=== PATIENT | male | born 1970 | race Caucasian/White ===

== ENCOUNTER 2017-11-15 15:18 | Emergency (ER) | payer OTHER, MEDICAID, SELFPAY ==
[2017-11-15 15:24] VITALS: BP 158/98; PULSE 76; RESP 18; TEMP 36.6; O2SAT 97; BMI 32.5
[2017-11-15] MEDS: PROPARACAINE 0.5% OPHTH SOL 1 DROPS EYE-RIGHT (15:37)
[2017-11-15] MEDS: TET,DIPH,PERTUSS(ACELL),VAC/PF 0.5 ML SYRINGE IM (16:21)
[2017-11-15 16:25] VITALS: BP 145/93; PULSE 83; RESP 18; TEMP 36.4; O2SAT 96
--- NOTE | 2017-11-15 17:16 | ED.EYEPROB ---
HPI - Eye Problem General Chief complaint: Eye Problems Stated complaint: SOME DEBRIS IN RIGHT EYE Time Seen by Provider: 11/15/17 17:16 Source: patient Mode of arrival: ambulatory Limitations: no limitations History of Present Illness HPI Narrative: 47-year-old male here for right eye foreign body sensation. Does not wear contacts. Does not know what could be in his eye. He tried to flush his eye this morning. He states that it is in the middle of the upper eyelid however has moved around. Has not tried anything for it prior to arrival. Related Data Previous Rx's Medication Instructions Recorded erythromycin 0.5 inch EYE-RIGHT Q6H 2 Days #1 11/15/17 gram Allergies Allergy/AdvReac Type Severity Reaction Status Date / Time No Known Drug Allergies Allergy Verified 11/15/17 15:28 Review of Systems Constitutional Denies fatigue, Denies fever(s) and Denies headache(s) Eyes Reports blurry vision (Right eye), Denies diplopia, Reports irritation (Right eye), Denies loss of vision, Reports eye pain (Right eye) and Reports photophobia Comments: Foreign body sensation right eye ENT Ears, Nose, Mouth, and Throat: Denies facial pain and Denies headache(s) Integumentary/Breasts Comments: No changes in skin around the right eye Neurologic Denies headache(s) and Denies loss of vision Endocrine Denies fatigue [facility] Social History Smoking Status: Never smoker Exam Initial Vital Signs Initial Vital Signs: Vital Signs Temperature 97.8 F 11/15/17 15:24 Pulse Rate 76 11/15/17 15:24 Respiratory Rate 18 11/15/17 15:24 Blood Pressure 158/98 H 11/15/17 15:24 Pulse Oximetry 97 11/15/17 15:24 Const General: cooperative, healthy appearing, comfortable and well developed Orientation: alert, awake and oriented x3 Eyes Periorbital: periorbital findings normal Conjunctivae: conjunctivae normal Sclera: sclerae normal Cornea: corneas abnormal on the right fluorescein used and abrasion and fluorescein used Pupils: PERRL EOM: EOM intact bilaterally Direct ophthalmoscopy: photophobia Skin Other: Skin surrounding right eye unremarkable Neuro General: alert, awake and oriented x3 Procedures Foreign Body EYE Time Out performed: Yes Location: eye (R) Topical anesthetic used: proparacaine Foreign body: other (Unknown) Evidence of corneal penetration: No Technique: cotton tip swab Procedure performed under: direct visualization with magnification Patient tolerated procedure: well and no complications Course Orders Ordered: Discontinued Medications Diphtheria/Tetanus/Acell Pertussis (Adacel) 0.5 ml IM .ONCE ONE Stop: 11/15/17 16:20 Last Admin: 11/15/17 16:21 Dose: 0.5 ml Erythromycin (Erythromycin Ophth Oint) 1 applic EYE-RIGHT NOW ONE Stop: 11/15/17 17:26 Last Admin: 11/15/17 17:27 Dose: 1 applic Proparacaine HCl (Parcaine 0.5% Ophth Jeannie) 1 drops EYE-RIGHT NOW ONE Stop: 11/15/17 15:37 Last Admin: 11/15/17 15:37 Dose: 1 drop Vital Signs - 8 hr 11/15/17 15:24 11/15/17 16:25 Temperature 97.8 F 97.6 F Pulse Rate 76 83 Respiratory Rate 18 18 Blood Pressure 158/98 H Blood Pressure [Left Arm] 145/93 H Pulse Oximetry 97 96 MDM - Eye Problem MDM Narrative Medical decision making narrative: Patient is not were contacts. Does have a corneal abrasion. Foreign body was removed from the right upper eyelid where the patient stated that it was. The no signs of ulceration. Upon reexamination no other foreign bodies were found. Patient was given Erythromycin here in the ER. He was given care instructions and return precautions. He expressed understanding and agreement with plan Discharge Plan Departure Patient Disposition: Home, Self-Care Clinical Impression: Corneal abrasion, Foreign body in eye Discharge Date/Time: 11/15/17 17:30 Interventions: ED Discharge Assessment Last Done: 11/15/17 17:30 Instructions: DI for Corneal Abrasion Activity Restrictions/Additional Instructions: Use the erythromycin ointment as directed. Return to the emergency department for any new or worsening symptoms Prescriptions: New erythromycin 5 mg/gram (0.5 %) ointment 0.5 inch EYE-RIGHT Q6H 2 Days Qty: 1 RF: 0
[2017-11-15] MEDS: ERYTHROMYCIN OPHTH 1 GM OINT 1 APPLIC EYE-RIGHT (17:27)
== END 2017-11-15 17:30 | disposition home or self-care (01) ==
PROVIDERS: Emergency Provider Emergency Medicine
DX: T15.91XA Foreign body on external eye, part unspecified, right eye, initial encounter (principal)
CPT/HCPCS: 65205; 99282; 99283; 90715

== ENCOUNTER 2018-05-13 15:34 | Emergency (ER) | payer OTHER, MEDICAID, SELFPAY ==
[2018-05-13 15:39] VITALS: TEMP 36.2; BMI 31.7
[2018-05-13 15:41] VITALS: BP 185/106; PULSE 78; RESP 14; TEMP 36.2; O2SAT 97; BMI 31.7
[2018-05-13] MEDS: PROPARACAINE 0.5% OPHTH SOL 1 DROPS EYE-RIGHT (15:47)
== END 2018-05-13 17:02 | disposition left against medical advice (07) ==
PROVIDERS: Emergency Provider Emergency Medicine
DX: H57.11 Ocular pain, right eye (principal)
CPT/HCPCS: 99281

== ENCOUNTER 2021-04-21 04:06 | Emergency (ER) | payer OTHER, MEDICAID, SELFPAY ==
[2021-04-21] VITALS (11 sets, daily range): BP systolic 159–200; BP diastolic 92–108; PULSE 70–83; RESP 17; TEMP 36.6; O2SAT 92–97; BMI 31.7
--- NOTE | 2021-04-21 04:20 | DI.CT.S_ITS ---
PROCEDURE: CT HEAD/BRAIN WO CON INDICATIONS: worst headache of life TECHNIQUE: Noncontrast 4.5 mm thick angled axial sections acquired from the foramen magnum to the vertex, with coronal and sagittal reformats. For radiation dose reduction, the following was used: automated exposure control, adjustment of mA and/or kV according to patient size. COMPARISON: None. FINDINGS: Image quality: Excellent. CSF spaces: Basal cisterns are patent. No extra-axial fluid collections. Ventricles are normal in size and shape. Brain: No midline shift. No intracranial masses or hemorrhage. Arias-white matter interface is normal. Skull and face: Calvarium and visualized facial bones are intact, without suspicious lesions. Sinuses: Visualized sinuses and mastoids are clear. IMPRESSION: No acute intracranial hemorrhage is seen. No acute intracranial process is seen. Note: No significant discrepancy from the preliminary report. Dictated by: Catrachito Kapadia M.D. on 04/21/2021 at 8:09 Approved by: Catrachito Kapadia M.D. on 04/21/2021 at 8:10
--- NOTE | 2021-04-21 04:21 | ED_ITS ---
HPI - Headache General Chief Complaint: Headache Stated Complaint: unable to think straight, severe headache Time Seen by Provider: 04/21/21 04:11 Mode of arrival: Ambulatory Limitations: no limitations History of Present Illness HPI Narrative: 50-year-old male nonsmoker with noncontributory or chronic medical history presents with a chief complaint of a gradually worsening headache over the past 2 days or so. He denies any fever or chills, he has had no recent trauma or injury. He complains of a generalized, squeezing type headache that seems to be worse with bright lights and loud noise. He does have some blurring of vision but denies any other focal neurologic symptoms such as trouble with speech, numbness, tingling or weakness. He has no chest pain or shortness of breath and denies any abdominal pain. He has tried a dose of Motrin and a dose of aspirin with minimal relief. He states he is currently having 5/10 pain. He states it is rather persistent. He denies any history of the same. He denies any recent change in any medications, diet, stress or sleep. He denies any change in caffeine intake. Related Data Previous Rx's Medication Instructions Recorded amlodipine 5 mg tablet 5 mg PO DAILY #30 tab 04/21/21 Allergies Allergy/AdvReac Type Severity Reaction Status Date / Time No Known Drug Allergies Allergy Verified 05/13/18 15:39 Review of Systems Review of Systems Narrative: GENERAL: Denies chills, fatigue, malaise, fever, sweats. HEENT: Denies sinus pain, ear pain, sore throat, difficulty swallowing, d izziness. RESPIRATORY: Denies dyspnea, cough, wheezing, hemoptysis, sputum. CARDIOVASCULAR: Denies chest pain, palpitations, orthopnea, edema, GASTROINTESTINAL: Denies nausea, vomiting, abdominal pain, diarrhea, constipation, melena. : Denies dysuria, frequency, incontinence, hematuria, urinary retention. MUSCULOSKELETAL: denies weakness, joint pain, or bony pain SKIN: Denies rash, skin lesions, or other NEUROLOGIC: See HPI PSYCHIATRIC: No concerning psychosocial issues. 12 point review of systems is negative except for those stated above Patient History Social History Smoking Status: Never smoker Smoking Status: Never smoker alcohol intake frequency: a few times a month Substance Use Type: does not use Exam Narrative Exam Narrative: GENERAL: [] year old patient appears stated age. Well-developed patient, in mild distress. HEAD: Atraumatic. Normocephalic. EYES: Pupils equal round and reactive. Extraocular motions intact. No scleral icterus. No injection or drainage. ENT: Nose without bleeding, purulent drainage. Throat without erythema, tonsillar hypertrophy or exudate. Airway patent. NECK: Trachea midline. Non tender CARDIOVASCULAR: Regular rate and rhythm without murmurs, gallops, or rubs. RESPIRATORY: Clear to auscultation. Breath sounds equal bilaterally. No wheezes, rales, or rhonchi. GASTROINTESTINAL: Abdomen soft, non-tender, nondistended. EXTREMITIES: No edema or joint tenderness. BACK: Nontender without deformity or crepitance. No flank tenderness. NEURO: AOx3. SKIN: No rash or erythema of visible areas Initial Vital Signs Initial Vital Signs: Vital Signs Temperature 97.8 F 04/21/21 04:16 Pulse Rate 81 04/21/21 04:16 Respiratory Rate 17 04/21/21 04:16 Blood Pressure 192/107 H 04/21/21 04:16 Pulse Oximetry 97 04/21/21 04:16 Course Orders Ordered: ED Orders 04/21/21 04:20 CT head/brain wo con Stat 04/21/21 04:40 Basic Metabolic Panel Stat Complete Blood Count AUTO DIFF Stat Discontinued Medications Amlodipine Besylate (Amlodipine 5 Mg Tablet) 5 mg PO NOW ONE Stop: 04/21/21 06:26 Last Admin: 04/21/21 06:29 Dose: 5 mg Documented by: Dexamethasone (Dexamethasone 10 Mg/Ml Vial) 10 mg IV NOW ONE Stop: 04/21/21 04:20 Last Admin: 04/21/21 04:52 Dose: 10 mg Documented by: CONCEPCION Diphenhydramine HCl (Diphenhydramine 50 Mg/Ml Vial) 25 mg IV NOW ONE Stop: 04/21/21 04:20 Last Admin: 04/21/21 04:52 Dose: 25 mg Documented by: CONCEPCION Sodium Chloride (Normal Saline 0.9%) 1,000 mls @ 1,000 mls/hr IV BOLUS ONE Stop: 04/21/21 05:18 Last Admin: 04/21/21 04:53 Dose: 1,000 mls/hr Documented by: CONCEPCION Ketorolac Tromethamine (Ketorolac 30 Mg/Ml Vial) 15 mg IV NOW ONE Stop: 04/21/21 04:20 Last Admin: 04/21/21 04:53 Dose: 15 mg Documented by: CONCEPCION Metoclopramide HCl (Metoclopramide 10 Mg/2 Ml Inj) 10 mg IV NOW ONE Stop: 04/21/21 04:20 Last Admin: 04/21/21 04:52 Dose: 10 mg Documented by: CONCEPCION Reevaluation(s) Reevaluation #1: patient feeling significant improvement after the above stated therapies. BP down to the 150s. Head CT clear Vital Signs Vital signs: Vital Signs - 8 hr 04/21/21 04:16 04/21/21 04:30 04/21/21 04:31 Temperature 97.8 F Pulse Rate 81 81 82 Respiratory Rate 17 Blood Pressure 192/107 H 159/92 H Pulse Oximetry 97 94 94 04/21/21 05:00 04/21/21 05:30 04/21/21 06:00 Temperature Pulse Rate 76 72 70 Respiratory Rate Blood Pressure Pulse Oximetry 95 92 93 04/21/21 06:24 04/21/21 06:27 04/21/21 06:29 Temperature Pulse Rate 83 82 77 Respiratory Rate Blood Pressure 190/108 H 198/92 H Pulse Oximetry 95 94 95 04/21/21 06:30 Temperature Pulse Rate Respiratory Rate Blood Pressure 200/95 H Pulse Oximetry MDM - Headache Lab Data Result diagrams: 04/21/21 04:40 04/21/21 04:40 Labs: Lab Results 04/21/21 04/21/21 Range/Units 04:40 04:40 WBC 7.4 (4.5-11.0) X10^3/uL RBC 5.60 (4.5-5.9) X10^6/uL Hgb 16.2 (13.5-17.5) g/dL Hct 47.5 (41-53) % MCV 84.8 (80-100) fL MCH 28.9 (26-34) PG MCHC 34.1 (30-36) % RDW 13.5 (11.6-14.8) % Plt Count 224 (150-400) X10^3/uL Neut % (Auto) 80.6 H (50-75) % Lymph % (Auto) 10.0 L (25-40) % Kleberg % (Auto) 8.8 (3-14) % Eos % (Auto) 0.3 L (2-4) % Baso % (Auto) 0.3 (0-2) % Neut # (Auto) 6000 (7184-7754) /uL Lymph # (Auto) 700 L (2217-7251) /uL Kleberg # (Auto) 700 (0-900) /uL Eos # (Auto) 0 (0-450) /uL Baso # (Auto) 0 (0-100) /uL Sodium 135 L (137-145) mmol/L Potassium 4.3 (3.4-5.1) mmol/L Chloride 99 (98-107) mmol/L Carbon Dioxide 26 (22-32) mmol/L BUN 12 (9-20) mg/dL Creatinine 0.90 (0.66-1.25) mg/dL Estimated GFR > 60.0 (>60) mL/min BUN/Creatinine Ratio 13.3 (6-22) Glucose 106 H (70-100) mg/dL Calcium 8.9 (8.4-10.2) mg/dL Imaging Data CT scan - head: Radiologist's Impression: NAP MDM Narrative Medical decision making narrative: Headache considerations include, but not limited to: Subarachnoid hemorrhage, but unlikely as patient denies sudden onset of pain, not worst of life, or neck pain Meningitis considered, but thought unlikely given lack of Brudzinski's, Kernig's sign, altered mental status or fever Giant cell arteritis considered, but thought unlikely given lack of unilateral findings, pain in amish, vision change HTN Emergency considered, but thought unlikely given normal vitals Other serious diagnoses considered unlikely given lack of red flag findings such as sudden onset, increasing frequency, immunocompromise, systemic signs (fever, chills, stiff neck, or rash), focal neurologic findings, trauma, blood thinners, etc. Discharge Plan Departure Patient Disposition: Home Clinical Impression: Headache, Hypertension Instructions: Essential Hypertension, DI for Headache Activity Restrictions/Additional Instructions: *You have been diagnosed with [ Headache ] *What to do: *A new prescription for a blood pressure pill (Amlodipine) was sent to [facility] *Follow up with your primary care provider in 2-3 days, call for an appointment. Let them know you were seen in the Emergency Department and that we ask that you be seen in follow up. If you don't have a primary physician you may call [phone] *Return to ER if you should have any new, worsening or concerning symptoms, such as [ fever > 101F, neck pain or stiffness, vomiting, confusion, seizure, focal weakness, vision change, speech deficit or other concerning symptoms ] Prescriptions: New amlodipine 5 mg tablet 5 mg PO DAILY Qty: 30 0RF Referrals: Schuyler Reed MD [Physician] -
[2021-04-21 04:51] LABS: Add Manual Diff / Slide Review NO; Basophils Absolute Auto 0 /uL (0-100); Basophils Percent Auto 0.3 % (0-2); Eosinophils Absolute Auto 0 /uL (0-450); Eosinophils Percent Auto 0.3 % (2-4); Hematocrit 47.5 % (41-53); Hemoglobin 16.2 g/dL (13.5-17.5); Lymphocytes Absolute Auto 700 /uL (1100-4500); Mean Corpuscular HGB Conc 34.1 % (30-36); Mean Corpuscular Hemoglobin 28.9 PG (26-34); Mean Corpuscular Volume 84.8 fL (80-100); Monocytes Absolute Auto 700 /uL (0-900); Monocytes Percent Auto 8.8 % (3-14); Neutrophils Absolute Auto 6000 /uL (1500-7000); Neutrophils Percent Auto 80.6 % (50-75); Platelet Count 224 X10^3/uL (150-400); Red Cell Distribution Width 13.5 % (11.6-14.8); White Blood Cell Count 7.4 X10^3/uL (4.5-11.0)
[2021-04-21] MEDS: diphenhydrAMINE 50 MG/ML VIAL 25 MG IV (04:52)
[2021-04-21] MEDS: METOCLOPRAMIDE 10 MG/2 ML INJ IV (04:52)
[2021-04-21] MEDS: DEXAMETHASONE 10 MG/ML VIAL IV (04:52)
[2021-04-21] MEDS: KETOROLAC 30 MG/ML VIAL 15 MG IV (04:53)
[2021-04-21] MEDS: SODIUM CHLORIDE 0.9% 1,000 ML 1000 ML IV (04:53)
[2021-04-21 04:59] LABS: BUN Creatinine Ratio 13.3 (6-22); Blood Urea Nitrogen 12 mg/dL (9-20); Calcium 8.9 mg/dL (8.4-10.2); Carbon Dioxide 26 mmol/L (22-32); Chloride 99 mmol/L (98-107); Estimated Glomerular Filt Rate > 60.0 mL/min (>60); Glucose 106 mg/dL (70-100); HEMOLYSIS < 15 (0-50); Potassium 4.3 mmol/L (3.4-5.1); Sodium 135 mmol/L (137-145)
[2021-04-21] MEDS: AMLODIPINE 5 MG TABLET PO (06:29)
--- NOTE | 2021-04-21 06:31 | PC.NURSE ---
Dr Aponte notified of elevated BP. Orders received to start amlodipine.
== END 2021-04-21 07:07 | disposition home or self-care (01) ==
PROVIDERS: Emergency Provider Emergency Medicine
DX: R51.9 Headache, unspecified (principal); I10 Essential (primary) hypertension
CPT/HCPCS: 36415; 70450; 80048; 85025; 96361; 96374; 96375; 99284; J1100; J1200; J1885; J2765

== ENCOUNTER 2021-04-24 12:16 | Inpatient (IN) | payer OTHER, MEDICAID, SELFPAY ==
[2021-04-24] VITALS (11 sets, daily range): BP systolic 154–160; BP diastolic 91–97; PULSE 65–104; RESP 16–26; TEMP 35.6–37.4; O2SAT 85–95; BMI 31.7
--- NOTE | 2021-04-24 12:54 | DI.RAD.S_ITS ---
PROCEDURE: XR CHEST 2V INDICATIONS: Shortness of breath TECHNIQUE: 2 views of the chest were acquired. COMPARISON: None. FINDINGS: Surgical changes and devices: None. Lungs and pleura: There are severe mixed interstitial and airspace opacities bilaterally, both ground-glass and consolidative. No pleural effusions or pneumothorax. Mediastinum: Mediastinal contours are normal. Heart size is normal. Bones and chest wall: No suspicious bony abnormalities. Soft tissues appear unremarkable. IMPRESSION: Severe bilateral mixed interstitial and airspace opacities including multifocal consolidation. Findings are likely infectious although there could be a superimposed element of pulmonary edema. Dictated by: Hussein Salcedo M.D. on 04/24/2021 at 12:28 Approved by: Hussein Salcedo M.D. on 04/24/2021 at 12:30
[2021-04-24 13:21] LABS: Add Manual Diff / Slide Review NO; Basophils Absolute Auto 0 /uL (0-100); Basophils Percent Auto 0.2 % (0-2); Eosinophils Absolute Auto 0 /uL (0-450); Hematocrit 48.2 % (41-53); Hemoglobin 16.6 g/dL (13.5-17.5); Lymphocytes Absolute Auto 600 /uL (1100-4500); Lymphocytes Percent Auto 9.7 % (25-40); Mean Corpuscular HGB Conc 34.5 % (30-36); Mean Corpuscular Hemoglobin 28.9 PG (26-34); Mean Corpuscular Volume 83.8 fL (80-100); Monocytes Absolute Auto 400 /uL (0-900); Monocytes Percent Auto 6.5 % (3-14); Neutrophils Absolute Auto 5100 /uL (1500-7000); Neutrophils Percent Auto 83.6 % (50-75); Platelet Count 222 X10^3/uL (150-400); Red Blood Cell Count 5.75 X10^6/uL (4.5-5.9); Red Cell Distribution Width 13.5 % (11.6-14.8); White Blood Cell Count 6.1 X10^3/uL (4.5-11.0)
[2021-04-24 13:24] LABS: Creatine Kinase 265 U/L (55-170); Lactate (Lactic Acid) 1.3 mmol/L (0.7-2.1)
[2021-04-24 13:25] LABS: Alanine Aminotransferase 38 IU/L (<50); Albumin 4.3 g/dL (3.5-5.0); Albumin Globulin Ratio 1.3 (1.0-2.8); Alkaline Phosphatase 54 U/L (38-126); Aspartate Aminotransferase 47 IU/L (17-59); BUN Creatinine Ratio 19.3 (6-22); Bilirubin Total 0.8 mg/dL (0.2-1.3); Blood Urea Nitrogen 17 mg/dL (9-20); Calcium 8.4 mg/dL (8.4-10.2); Carbon Dioxide 24 mmol/L (22-32); Chloride 98 mmol/L (98-107); Estimated Glomerular Filt Rate > 60.0 mL/min (>60); Globulin 3.2 g/dL (1.7-4.1); Glucose 122 mg/dL (70-100); HEMOLYSIS 32 (0-50); Potassium 4.2 mmol/L (3.4-5.1); Sodium 134 mmol/L (137-145); Total Protein 7.5 g/dL (6.3-8.2)
[2021-04-24 13:32] LABS: COVID19 -Nasal RAPID POSITIVE (Negative)
[2021-04-24 13:34] LABS: NT-proBNP (BNP-Adult 18+) 39 pg/mL (<125)
[2021-04-24 13:36] LABS: Troponin I < 0.012 ng/mL (0.01-0.034)
[2021-04-24 13:39] LABS: CKMB % Relative Index 0.2 % (1.5-5.0); Creatine Kinase MB 0.61 ng/mL (<2.37)
--- NOTE | 2021-04-24 14:26 | ED_ITS ---
HPI - Headache General Chief Complaint: Headache Stated Complaint: Heavy metal poisioning Time Seen by Provider: 04/24/21 13:06 Source: patient and old records reviewed Mode of arrival: Wheelchair Limitations: no limitations History of Present Illness HPI Narrative: This is a 49-year-old male comes emergency department with complaint of headache. Patient states he has been feeling unwell for several weeks but was here 2 days ago for headache. Had a head CT at that time which was negative. He has also been feeling short of breath. Having generalized body aches. He denies lot of congestion but he has had a cough which has been nonproductive. He has had nausea but no active vomiting. He denies any diarrhea constipation. He denies any urinary symptoms. No new swelling or skin changes. He also notes he has had bilateral ear pain. He denies daily medications although his EMR says amlodipine. He denies any major surgeries. No known drug allergies. Patient denies any tobacco or alcohol use. No illicit. He states he has not been vaccinated for coronavirus. He does not have any known contacts he is aware of. He states he does not currently have a primary care physician. Related Data Previous Rx's Medication Instructions Recorded amlodipine 5 mg tablet 5 mg PO DAILY #30 tab 04/21/21 Allergies Allergy/AdvReac Type Severity Reaction Status Date / Time No Known Drug Allergies Allergy Verified 04/24/21 12:22 Review of Systems Review of Systems ROS Unobtainable: All systems reviewed & are unremarkable except as noted in HPI and below Patient History Medical History (Updated 04/24/21 @ 17:38 by Felipa Peres MD) Headache Hypertension Family History (Updated 04/24/21 @ 17:38 by Felipa Peres MD) Father Pneumonia due to COVID-19 virus Social History household members: spouse Smoking Status: Never smoker Smoking Status: Never smoker alcohol intake frequency: holidays/special occasions only Substance Use Type: does not use Exam Narrative Exam Narrative: GEN: Ill-appearing male, alert and oriented x 3, patient appears to be in mild distress. HEENT: Atraumatic, pupils are equal round reactive to light, extraocular movements are intact, nares are clear, TMs are clear with no fluid, there is no conjunctival pallor. Throat is clear without any exudates, erythema, tonsillar enlargement or uvular deviation HEART: Regular rate and rhythm without murmur, clicks, rubs. Pulses are equal in upper and lower extremities LUNGS:Lungs clear to auscultation, no wheezes, rales, crackles, chest moves symmetrically, ABD:bowel sounds normal, soft, non-tender, no guarding, rebound, rigidity, no masses noted, no hepatosplenomegaly :No CVA tenderness. MSCL: Non-tender, no muscle atrophy, full range of motion NEURO:CN 2-12 intact, sensation normal SKIN: No rash or skin changes noted. Initial Vital Signs Initial Vital Signs: Vital Signs Temperature 98.8 F 04/24/21 12:20 Pulse Rate 104 H 04/24/21 12:20 Respiratory Rate 16 04/24/21 12:20 Blood Pressure 157/91 H 04/24/21 12:20 Pulse Oximetry 91 04/24/21 12:20 Course Orders Ordered: ED Orders 04/24/21 12:45 COVID19 -Nasal swab/Pre-Proc Stat Complete Blood Count AUTO DIFF Stat Comprehensive Metabolic Panel Stat Lactate (Lactic Acid) Stat NT-proBNP (BNP-Adult 18+) Stat Troponin & CK Cardiac Panel Stat 04/24/21 12:54 XR chest 2V Stat Measure peak expiratory flow ONCE RT Consult Eval and Treat Now 04/24/21 13:06 EKG-12 Lead Stat Acetaminophen (Acetaminophen 325 Mg Tablet) 650 mg PO Q6HR PRN PRN Reason: Fever/Mild Pain (1-3) Last Admin: 04/24/21 16:50 Dose: 650 mg Documented by: ROBERT Hydrocodone Bitart/Acetaminophen (Hydrocodone/Acet 5/325 Tablet) 1 tab PO Q4HR PRN PRN Reason: Pain, Moderate (4-6) Last Admin: 04/24/21 17:18 Dose: 1 tab Documented by: ROBERT Amlodipine Besylate (Amlodipine 5 Mg Tablet) 5 mg PO DAILY [facility] Bisacodyl (Bisacodyl 10 Mg Supp) 10 mg [place] DAILY PRN PRN Reason: Constipation Dexamethasone (Dexamethasone 10 Mg/Ml Vial) 6 mg IV DAILY [facility] Docusate Sodium (Docusate 100 Mg Capsule) 100 mg PO BID [facility] Enoxaparin Sodium (Enoxaparin 40 Mg/0.4 Ml Syringe) 40 mg SUBCUT DAILY [facility] Remdesivir 100 mg/ Sodium (Chloride) 250 mls @ 250 mls/hr IV DAILY ANGELINA Stop: 04/28/21 09:59 Ibuprofen (Ibuprofen 600 Mg Tablet) 600 mg PO Q6HR PRN PRN Reason: Fever/Mild Pain (1-3) Magnesium Hydroxide (Magnesium Hydroxide 30 Ml Udc) 30 ml PO DAILY PRN PRN Reason: Constipation Naloxone HCl (Naloxone 0.4 Mg/Ml Vial) 0.2 mg IV Q2MIN PRN PRN Reason: Opiate Reversal Ondansetron HCl (Ondansetron 4 Mg/2 Ml Inj) 4 mg IV Q6HR PRN PRN Reason: Nausea And Vomiting Last Admin: 04/24/21 14:54 Dose: 4 mg Documented by: ELIZABETH Ondansetron HCl (Ondansetron 4 Mg/2 Ml Inj) 4 mg IV Q8HR PRN PRN Reason: Nausea And Vomiting Ondansetron HCl (Ondansetron 4 Mg Odt) 4 mg PO Q8HR PRN PRN Reason: Nausea And Vomiting Sennosides (Sennosides 8.6 Mg Tablet) 17.2 mg PO BEDTIME ANGELINA Discontinued Medications Dexamethasone (Dexamethasone 10 Mg/Ml Vial) 6 mg IV NOW ONE Stop: 04/24/21 14:37 Last Admin: 04/24/21 15:01 Dose: 6 mg Documented by: ELIZABETH Remdesivir 200 mg/ Sodium (Chloride) 250 mls @ 250 mls/hr IV NOW ONE Stop: 04/24/21 15:35 Last Infusion: 04/24/21 15:06 Dose: 0 mls/hr Documented by: Admin: 04/24/21 15:00 Dose: 250 mls/hr Documented by: ELIZABETH Ketorolac Tromethamine (Ketorolac 30 Mg/Ml Vial) 15 mg IV NOW ONE Stop: 04/24/21 14:37 Last Admin: 04/24/21 14:54 Dose: 15 mg Documented by: ELIZABETH Consultations Consultation #1: Dr. Peres accepts for admission. Patient has COVID pneumonia with hypoxia requiring 2-4 L intermittently. He is unvaccinated. His labs otherwise do not show any alarming changes today. Vital Signs Vital signs: Vital Signs - 8 hr 04/24/21 12:20 04/24/21 12:49 04/24/21 13:00 Temperature 98.8 F Pulse Rate 104 H 94 H 94 H Respiratory Rate 16 23 23 Blood Pressure 157/91 H 158/93 H 160/91 H Pulse Oximetry 91 92 85 L 04/24/21 13:05 04/24/21 13:30 04/24/21 14:00 Temperature Pulse Rate 96 H 89 Respiratory Rate 23 24 Blood Pressure Pulse Oximetry 94 94 94 04/24/21 14:30 04/24/21 14:37 Temperature Pulse Rate 94 H Respiratory Rate 26 H Blood Pressure Pulse Oximetry 90 L 95 MDM - Headache Lab Data Result diagrams: 04/24/21 12:45 04/24/21 12:45 Labs: Lab Results 04/24/21 04/24/21 04/24/21 Range/Units 12:45 12:45 12:45 WBC 6.1 (4.5-11.0) X10^3/uL RBC 5.75 (4.5-5.9) X10^6/uL Hgb 16.6 (13.5-17.5) g/dL Hct 48.2 (41-53) % MCV 83.8 (80-100) fL MCH 28.9 (26-34) PG MCHC 34.5 (30-36) % RDW 13.5 (11.6-14.8) % Plt Count 222 (150-400) X10^3/uL Neut % (Auto) 83.6 H (50-75) % Lymph % (Auto) 9.7 L (25-40) % [place] % (Auto) 6.5 (3-14) % Eos % (Auto) 0.0 L (2-4) % Baso % (Auto) 0.2 (0-2) % Neut # (Auto) 5100 (7129-3848) /uL Lymph # (Auto) 600 L (9757-4789) /uL [place] # (Auto) 400 (0-900) /uL Eos # (Auto) 0 (0-450) /uL Baso # (Auto) 0 (0-100) /uL Sodium 134 L (137-145) mmol/L Potassium 4.2 (3.4-5.1) mmol/L Chloride 98 (98-107) mmol/L Carbon Dioxide 24 (22-32) mmol/L BUN 17 (9-20) mg/dL Creatinine 0.88 (0.66-1.25) mg/dL Estimated GFR > 60.0 (>60) mL/min BUN/Creatinine Ratio 19.3 (6-22) Glucose 122 H (70-100) mg/dL Lactate (0.7-2.1) mmol/L Calcium 8.4 (8.4-10.2) mg/dL Total Bilirubin 0.8 (0.2-1.3) mg/dL AST 47 (17-59) IU/L ALT 38 (<50) IU/L Alkaline Phosphatase 54 (38-126) U/L Total Creatine Kinase (55-170) U/L CK-MB (CK-2) (<2.37) ng/mL CK-MB (CK-2) Rel Index (1.5-5.0) % Troponin I (0.01-0.034) ng/mL NT-Pro-B Natriuret Pep 39 (<125) pg/mL Total Protein 7.5 (6.3-8.2) g/dL Albumin 4.3 (3.5-5.0) g/dL Globulin 3.2 (1.7-4.1) g/dL Albumin/Globulin Ratio 1.3 (1.0-2.8) Procalcitonin (<0.5) ng/mL SARS-CoV-2 (PCR) Positive H (Negative) 04/24/21 04/24/21 04/24/21 Range/Units 12:45 12:45 12:45 WBC (4.5-11.0) X10^3/uL RBC (4.5-5.9) X10^6/uL Hgb (13.5-17.5) g/dL Hct (41-53) % MCV (80-100) fL MCH (26-34) PG MCHC (30-36) % RDW (11.6-14.8) % Plt Count (150-400) X10^3/uL Neut % (Auto) (50-75) % Lymph % (Auto) (25-40) % [place] % (Auto) (3-14) % Eos % (Auto) (2-4) % Baso % (Auto) (0-2) % Neut # (Auto) (3850-7023) /uL Lymph # (Auto) (5657-3052) /uL [place] # (Auto) (0-900) /uL Eos # (Auto) (0-450) /uL Baso # (Auto) (0-100) /uL Sodium (137-145) mmol/L Potassium (3.4-5.1) mmol/L Chloride (98-107) mmol/L Carbon Dioxide (22-32) mmol/L BUN (9-20) mg/dL Creatinine (0.66-1.25) mg/dL Estimated GFR (>60) mL/min BUN/Creatinine Ratio (6-22) Glucose (70-100) mg/dL Lactate 1.3 (0.7-2.1) mmol/L Calcium (8.4-10.2) mg/dL Total Bilirubin (0.2-1.3) mg/dL AST (17-59) IU/L ALT (<50) IU/L Alkaline Phosphatase (38-126) U/L Total Creatine Kinase 265 H (55-170) U/L CK-MB (CK-2) 0.61 (<2.37) ng/mL CK-MB (CK-2) Rel Index 0.2 L (1.5-5.0) % Troponin I < 0.012 (0.01-0.034) ng/mL NT-Pro-B Natriuret Pep (<125) pg/mL Total Protein (6.3-8.2) g/dL Albumin (3.5-5.0) g/dL Globulin (1.7-4.1) g/dL Albumin/Globulin Ratio (1.0-2.8) Procalcitonin 0.08 (<0.5) ng/mL SARS-CoV-2 (PCR) (Negative) Imaging Data Chest x-ray: Radiologist's Impression: [address] [address] XRay Report Signed Patient: Alexei Neff MR#: [id number] : 1970 Acct:[id number] Age/Sex: 50 / M Date of Service: 04/24/21 Loc: ED Accession Number: [id number] ?? Procedure: XR chest 2V Ordering Provider: Nasrin Cerda D.O. PROCEDURE:? XR CHEST 2V ? INDICATIONS:? Shortness of breath ? TECHNIQUE:? 2 views of the chest were acquired.? ? COMPARISON:? None. ? FINDINGS:? ? Surgical changes and devices:? None.? ? Lungs and pleura:? There are severe mixed interstitial and airspace opacities bilaterally, both ground-glass and consolidative.? No pleural effusions or pneu mothorax.? ? ? Mediastinum:? Mediastinal contours are normal.? Heart size is normal.? ? Bones and chest wall:? No suspicious bony abnormalities.? Soft tissues appear unremarkable.? ? IMPRESSION:? Severe bilateral mixed interstitial and airspace opacities including multifocal consolidation.? Findings are likely infectious although there could be a superimposed element of pulmonary edema.? ? ? Dictated by: Hussein Salcedo M.D. on 04/24/2021 at 12:28 ? ? Approved by: Hussein Salcedo M.D. on 04/24/2021 at 12:30?? ECG Data Interpretation: Sinus rhythm rate of 90 2p are 140 QRS is 78 QTC of 420. No acute ST elevation depression. MDM Narrative Medical decision making narrative: 50-year-old male who comes emergency department with generalized myalgias, shortness of breath and headache. Patient's symptoms initially started more of a headache and just feeling unwell. He is COVID positive. He had a head CT 2 days ago when he was seen which was negative and was not reproduce today secondary to no acute new changes. He is requiring 2-4 L nasal cannula and appears to have pneumonia on his x-ray. Patient's labs show total CK of 265 but no other major abnormalities. Toradol, Zofran, remdesivir dexamethasone were ordered secondary to patient's hypoxia. Spoke with the hospitalist Dr. Peres who accepts. Discharge Plan Departure Patient Disposition: Admitted As Inpatient Clinical Impression: Pneumonia due to 2019 novel coronavirus Admit Date/Time: 04/24/21 15:01 Admit Provider: Felipa Peres
[2021-04-24] MEDS: ONDANSETRON 4 MG/2 ML INJ IV (14:54)
[2021-04-24] MEDS: KETOROLAC 30 MG/ML VIAL 15 MG IV (14:54)
[2021-04-24] MEDS: REMDESIVIR 200 MG in SODIUM CHLORIDE 0.9% 210 ML 250 ML IV (15:00)
[2021-04-24] MEDS: DEXAMETHASONE 10 MG/ML VIAL 6 MG IV (15:01)
--- NOTE | 2021-04-24 16:48 | PC.NURSE ---
Pt arrived from ED at approximately 1520, VSS, low grade temp of 99.4 and 02 saturation 97 on 4LNC. Pt reports headache 7/10 and medicated with PRN tylenol. Remdesivir completed 1 hour after transport. Pt denies syncope, n/c, falls. Skin is clear, dry, intact. Admission assessment completed. He denies any home medications. He reports lack of appetite and having lost 13 pounds in the past week. He reports psychological stressors recently such as court cases. He is slightly diaphoretic and slightly SOB with activity. Educated patient about falling and he agreed and acknowledged to call before getting up in the room independently. Continuous monitoring.
[2021-04-24] MEDS: ACETAMINOPHEN 325 MG TABLET 650 MG PO (16:50)
[2021-04-24] MEDS: HYDROCODONE/ACET 5/325 TABLET 1 TAB PO (17:18)
--- NOTE | 2021-04-24 17:35 | P.HP_ITS ---
History of Present Illness History of Present Illness Date Patient Seen: 04/24/21 Chief complaint: Heavy metal poisioning Narrative: The patient is a 50-year-old male with a past medical history of hypertension who was in his usual state of health until approximately 1 week ago. Patient developed a headache which was persistent. The headache was so severe he presented to the emergency room on April 21 for evaluation. Patient had a head CT which was unremarkable. He was discharged home. The patient presented again this evening with generalized body aches, shortness of breath, cough, poor appetite, metal taste. Patient is unvaccinated. He was tested for KHIS-THDYQ-0 and found to be COVID positive. The patient was noted to be hypoxic. He was admitted to the hospital for further evaluation. Patient reports he believes he had COVID in July of 2020. Not tested at that time. His father had COVID nearly succumbed to the illness but recovered. Patient was recently diagnosed with hypertension and started on amlodipine. Does not have a primary care physician. Patient History Medical History (Updated 04/24/21 @ 17:38 by Felipa Peres MD) Headache Hypertension Family & Social History Family History (Updated 04/24/21 @ 17:38 by Felipa Peres MD) Father Pneumonia due to COVID-19 virus Safety & Behavioral: Feels Safe in Current Yes Environment Been Physically Hurt or No Threatened By a Person Tobacco & Substance use: Smoking Status Never smoker alcohol intake frequency holiday/special occasion Substance Use Type does not use Meds Home Medications and Allergies Home Medications Medication Instructions Recorded Confirmed Type amlodipine 5 mg tablet 5 mg PO DAILY #30 tab 04/21/21 Rx Allergies Allergy/AdvReac Type Severity Reaction Status Date / Time No Known Drug Allergies Allergy Verified 04/24/21 12:22 Review of Systems Review of Systems Narrative: Review of systems positive for headache, poor appetite for the past week, weight loss, generalized aching, metal taste in his mouth, mild nausea, no vomiting, no hematemesis, no melena, no dysuria, no pyuria, for the review of systems is negative Exam Vital Signs (past 8 hours): - 04/24/21 12:20 04/24/21 12:49 04/24/21 13:00 Temperature 98.8 F Pulse Rate 104 H 94 H 94 H Respiratory Rate 16 23 23 Blood Pressure 157/91 H 158/93 H 160/91 H Pulse Oximetry 91 92 85 L 04/24/21 13:05 04/24/21 13:30 04/24/21 14:00 Temperature Pulse Rate 96 H 89 Respiratory Rate 23 24 Blood Pressure Pulse Oximetry 94 94 94 04/24/21 14:30 04/24/21 14:37 04/24/21 15:40 Temperature 99.3 F Pulse Rate 94 H 88 Respiratory Rate 26 H 20 Blood Pressure 159/96 H Pulse Oximetry 90 L 95 94 Oxygen Delivery Method Nasal Cannula Oxygen Flow Rate 4 Narrative Exam Narrative: Ill-appearing male lying in bed [facility] Other: HEENT: Normocephalic atraumatic, extraocular muscles are intact, oropharynx reveals moist mucous membranes, neck is supple without adenopathy or thyromegaly Resp Other: Lungs reveal diffuse rhonchi bilaterally Cardio Other: Cardiac exam: Regular rate and rhythm normal S1-S2 GI Other: Abdomen: Soft nontender nondistended no appreciable hepatosplenomegaly Skin Other: No rashes Neuro Other: Cranial nerves 2-12 are intact, strength is symmetric and equal, sensations grossly intact, gait is not assessed Extrem Other: No edema Psych Other: Normal mood and thought content, no hallucinations, no active delusions Objective Labs Result Diagrams: 04/24/21 12:45 04/24/21 12:45 Labs: Laboratory Results - last 24 hr 04/24/21 04/24/21 04/24/21 12:45 12:45 12:45 WBC 6.1 RBC 5.75 Hgb 16.6 Hct 48.2 MCV 83.8 MCH 28.9 MCHC 34.5 RDW 13.5 Plt Count 222 Neut % (Auto) 83.6 H Lymph % (Auto) 9.7 L [place] % (Auto) 6.5 Eos % (Auto) 0.0 L Baso % (Auto) 0.2 Neut # (Auto) 5100 Lymph # (Auto) 600 L [place] # (Auto) 400 Eos # (Auto) 0 Baso # (Auto) 0 Sodium 134 L Potassium 4.2 Chloride 98 Carbon Dioxide 24 BUN 17 Creatinine 0.88 Estimated GFR > 60.0 BUN/Creatinine Ratio 19.3 Glucose 122 H Lactate Calcium 8.4 Total Bilirubin 0.8 AST 47 ALT 38 Alkaline Phosphatase 54 Total Creatine Kinase CK-MB (CK-2) CK-MB (CK-2) Rel Index Troponin I NT-Pro-B Natriuret Pep 39 Total Protein 7.5 Albumin 4.3 Globulin 3.2 Albumin/Globulin Ratio 1.3 SARS-CoV-2 (PCR) Positive H 04/24/21 04/24/21 12:45 12:45 WBC RBC Hgb Hct MCV MCH MCHC RDW Plt Count Neut % (Auto) Lymph % (Auto) [place] % (Auto) Eos % (Auto) Baso % (Auto) Neut # (Auto) Lymph # (Auto) [place] # (Auto) Eos # (Auto) Baso # (Auto) Sodium Potassium Chloride Carbon Dioxide BUN Creatinine Estimated GFR BUN/Creatinine Ratio Glucose Lactate 1.3 Calcium Total Bilirubin AST ALT Alkaline Phosphatase Total Creatine Kinase 265 H CK-MB (CK-2) 0.61 CK-MB (CK-2) Rel Index 0.2 L Troponin I < 0.012 NT-Pro-B Natriuret Pep Total Protein Albumin Globulin Albumin/Globulin Ratio SARS-CoV-2 (PCR) Assessment & Plan Assessment and plan (1) Hypertension: Status: Acute (2) Headache: Status: Acute Assessment & Plan narrative: Impression 1. 50-year-old male admitted to the hospital with acute respiratory failure secondary to COVID pneumonia -patient is unvaccinated, SARs COVID 2 PCR is positive -chest x-ray confirms severe bilateral interstitial airspace opacities, there is multifocal consolidation, -patient is hypoxic with a room air sat of 85% -he continues to have fever, headache, and myalgias, poor appetite and metallic taste -white count 6.1, serum sodium 134 -will start dexamethasone 6 mg IV daily, remdesivir 200 mg IV x1 then 100 mg daily for 4 days -patient will be placed on Lovenox for DVT prophylaxis -will continue Tylenol and ibuprofen for headache -patient indicates he is a full code will note that his record according -in the event the patient would require intubation that resulted in tracheotomy he indicates he would not like a trach 2. 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 He indicates he would like to be a full code and will note that his record accordingly I have utilized all available methods to review update and confirm his medication Patient will be admitted as an inpatient Time Spent With Patient Critical Care time: I spent a total of [] minutes of critical care time on this patient's care today; this time is exclusive of procedural time.
[2021-04-24 17:57] LABS: Procalcitonin 0.08 ng/mL (<0.5)
[2021-04-25 01:20] VITALS: BP 144/91; PULSE 66; RESP 18; TEMP 36.5; O2SAT 94
[2021-04-25 06:21] VITALS: BP 129/89; PULSE 71; RESP 19; TEMP 36.3; O2SAT 95
[2021-04-25 08:30] VITALS: BP 144/84; PULSE 71; RESP 16; TEMP 37.1; O2SAT 93
[2021-04-25 09:54] LABS: Add Manual Diff / Slide Review NO; Basophils Absolute Auto 0 /uL (0-100); Basophils Percent Auto 0.1 % (0-2); Eosinophils Absolute Auto 0 /uL (0-450); Hematocrit 47.4 % (41-53); Hemoglobin 16.5 g/dL (13.5-17.5); Lymphocytes Absolute Auto 1000 /uL (1100-4500); Lymphocytes Percent Auto 16.2 % (25-40); Mean Corpuscular HGB Conc 34.9 % (30-36); Mean Corpuscular Hemoglobin 29.2 PG (26-34); Mean Corpuscular Volume 83.7 fL (80-100); Monocytes Absolute Auto 400 /uL (0-900); Monocytes Percent Auto 6.6 % (3-14); Neutrophils Absolute Auto 4800 /uL (1500-7000); Neutrophils Percent Auto 77.1 % (50-75); Platelet Count 245 X10^3/uL (150-400); Red Blood Cell Count 5.67 X10^6/uL (4.5-5.9); Red Cell Distribution Width 13.4 % (11.6-14.8); White Blood Cell Count 6.3 X10^3/uL (4.5-11.0)
[2021-04-25 10:16] LABS: BUN Creatinine Ratio 22.6 (6-22); Blood Urea Nitrogen 19 mg/dL (9-20); Calcium 8.5 mg/dL (8.4-10.2); Carbon Dioxide 28 mmol/L (22-32); Chloride 100 mmol/L (98-107); Estimated Glomerular Filt Rate > 60.0 mL/min (>60); Glucose 143 mg/dL (70-100); HEMOLYSIS < 15 (0-50); Sodium 136 mmol/L (137-145)
[2021-04-25] MEDS: DEXAMETHASONE 10 MG/ML VIAL 6 MG IV (10:18)
[2021-04-25] MEDS: REMDESIVIR 100 MG in SODIUM CHLORIDE 0.9% 230 ML 250 ML IV (10:19)
[2021-04-25] MEDS: AMLODIPINE 5 MG TABLET PO (10:20)
--- NOTE | 2021-04-25 12:05 | PC.NURSE ---
Addendum entered by Estephania Healy R.N. 04/25/21 15:58: Patient on 4l of o2 and sats are in the 90s, he did drop to 89% when he got up to the bathroom but goes back up to the 90s. He complains of dry eyes, to order some clear eyes for patient. Appetite good. Patients dad called to check on the patient several times. He is confused and pleasant.. He brought patient his phone cord to charge. Original Note: Patient with flat affect, he states that this is the second time he has had covid, he has no intention of getting the vaccine as he told me when we conversing. He is pleasant and cooperative with care. He refused his stool softner and states that he has not had a bowel movement in 5 days. Encouraged to take but he wanted nothing to do with this. Patient also refused his lovenox injection. Tried to explain to patient that this is prophylaxis to help prevent blood clots. He also did not want to really discuss this. His lung sounds have crackles in the bases and they are diminished. He is on 4l of oxygen and does desat down to 87-89% when he is up ambulating.
[2021-04-25 13:00] VITALS: BP 149/87; PULSE 78; RESP 20; TEMP 36.7; O2SAT 90
--- NOTE | 2021-04-25 15:42 | PM.PN.1 ---
Subjective Subjective Date Patient Seen: 04/25/21 Interval history: 50-year-old male admitted to the hospital for acute respiratory failure due to COVID pneumonia. Patient continues to feel short of breath, he complains of headache, he complains of his eyes burning. He is now on 4 L of oxygen. Oxygen saturation is 90-93%. He has a dry nonproductive cough. Exam Vital Signs (past 8 hours): - 04/25/21 08:30 04/25/21 13:00 Temperature 98.7 F 98.1 F Pulse Rate 71 78 Respiratory Rate 16 20 Blood Pressure 144/84 H 149/87 H Pulse Oximetry 93 90 L Oxygen Delivery Method Nasal Cannula Oxygen Flow Rate 4 Narrative Exam Narrative: Ill-appearing male lying in bed Resp Other: Lungs decreased breath sounds with scattered rhonchi bilaterally Cardio Other: Cardiac exam: Regular rate rhythm normal S1-S2 GI Other: Abdomen: Soft nontender nondistended Extrem Other: Extremities: No edema Objective Labs Result Diagrams: 04/25/21 09:25 04/25/21 09:25 Labs: Laboratory Results - last 24 hr 04/24/21 04/25/21 04/25/21 12:45 09:25 09:25 WBC 6.3 RBC 5.67 Hgb 16.5 Hct 47.4 MCV 83.7 MCH 29.2 MCHC 34.9 RDW 13.4 Plt Count 245 Neut % (Auto) 77.1 H Lymph % (Auto) 16.2 L [place] % (Auto) 6.6 Eos % (Auto) 0.0 L Baso % (Auto) 0.1 Neut # (Auto) 4800 Lymph # (Auto) 1000 L [place] # (Auto) 400 Eos # (Auto) 0 Baso # (Auto) 0 Sodium 136 L Potassium 4.0 Chloride 100 Carbon Dioxide 28 BUN 19 Creatinine 0.84 Estimated GFR > 60.0 BUN/Creatinine Ratio 22.6 H Glucose 143 H Calcium 8.5 Procalcitonin 0.08 PFSH Medical History (Updated 04/24/21 @ 17:38 by Felipa Peres MD) Headache Hypertension Family History (Updated 04/24/21 @ 17:38 by Felipa Peres MD) Father Pneumonia due to COVID-19 virus Social History household members: spouse Smoking Status: Never smoker Assessment & Plan Assessment & Plan narrative: 50-year-old male admitted to the hospital with acute respiratory failure secondary to COVID pneumonia -patient is unvaccinated, SARs COVID 2 PCR is positive -chest x-ray confirms severe bilateral interstitial airspace opacities, there is multifocal consolidation, -patient is hypoxic with a room air sat of 85% -he continues to have fever, headache, and myalgias, poor appetite and metallic taste -white count 6.1, serum sodium 134 -will start dexamethasone 6 mg IV daily, remdesivir 200 mg IV x1 then 100 mg daily for 4 days -patient will be placed on Lovenox for DVT prophylaxis -will continue Tylenol and ibuprofen for headache -patient indicates he is a full code will note that his record according -in the event the patient would require intubation that resulted in tracheotomy he indicates he would not like a trach -patient will continue on remdesivir and Decadron, he is slightly more hypoxic today, will continue to titrate oxygen for maximum effect -patient complains of burning eyes, will start clear eyes for this 2. Hypertension -new diagnosis, will continue amlodipine 5 mg daily, need to titrate for effect as blood pressure remains elevated -increase amlodipine to 10 mg daily Time Spent With Patient Critical Care time: I spent a total of [] minutes of critical care time on this patient's care today; this time is exclusive of procedural time. Quality VTE Deep Vein Thrombosis/Pulmonary Embolism Present on Admission: No
[2021-04-25 17:00] VITALS: BP 154/82; PULSE 70; RESP 20; TEMP 36.9; O2SAT 90
[2021-04-25 20:23] VITALS: BP 151/82; PULSE 70; RESP 20; TEMP 36.7; O2SAT 93
[2021-04-26] VITALS (7 sets, daily range): BP systolic 132–164; BP diastolic 82–93; PULSE 72–92; RESP 16–20; TEMP 36.3–37.2; O2SAT 88–93
[2021-04-26 05:03] LABS: Add Manual Diff / Slide Review NO; Basophils Absolute Auto 0 /uL (0-100); Basophils Percent Auto 0.3 % (0-2); Eosinophils Absolute Auto 0 /uL (0-450); Hematocrit 45.1 % (41-53); Hemoglobin 15.9 g/dL (13.5-17.5); Lymphocytes Absolute Auto 1500 /uL (1100-4500); Lymphocytes Percent Auto 17.7 % (25-40); Mean Corpuscular HGB Conc 35.4 % (30-36); Mean Corpuscular Hemoglobin 29.4 PG (26-34); Monocytes Absolute Auto 800 /uL (0-900); Monocytes Percent Auto 10.1 % (3-14); Neutrophils Absolute Auto 6000 /uL (1500-7000); Neutrophils Percent Auto 71.9 % (50-75); Platelet Count 286 X10^3/uL (150-400); Red Blood Cell Count 5.43 X10^6/uL (4.5-5.9); Red Cell Distribution Width 13.6 % (11.6-14.8); White Blood Cell Count 8.3 X10^3/uL (4.5-11.0)
[2021-04-26 05:10] LABS: BUN Creatinine Ratio 23.3 (6-22); Blood Urea Nitrogen 21 mg/dL (9-20); Calcium 8.5 mg/dL (8.4-10.2); Carbon Dioxide 33 mmol/L (22-32); Chloride 101 mmol/L (98-107); Estimated Glomerular Filt Rate > 60.0 mL/min (>60); Glucose 119 mg/dL (70-100); HEMOLYSIS < 15 (0-50); Potassium 4.3 mmol/L (3.4-5.1); Sodium 139 mmol/L (137-145)
[2021-04-26] MEDS: AMLODIPINE 5 MG TABLET 10 MG PO (09:33)
[2021-04-26] MEDS: DEXAMETHASONE 10 MG/ML VIAL 6 MG IV (09:33)
[2021-04-26] MEDS: REMDESIVIR 100 MG in SODIUM CHLORIDE 0.9% 230 ML 250 ML IV (09:33)
[2021-04-26] MEDS: DOCUSATE 100 MG CAPSULE PO (09:33)
[2021-04-26] MEDS: ENOXAPARIN 40 MG/0.4 ML SYRINGE SUBCUT (09:33)
--- NOTE | 2021-04-26 10:27 | PC.NURSE ---
Addendum entered by Estephania Healy R.N. 04/26/21 18:27: Patient is quietly sitting up in his chair . He has not needed any cough syrup as of yet. Per Dr. Peres patient was coughing in room while she was during her rounds with him. He has not complained of coughing since this. If he does we do have cough syrup for him. Addendum entered by Estephania Healy R.N. 04/26/21 15:50: Patient is 92% on 4l of oxygen. He states that he is feeling better since sitting up in the chair. We have also showed him how to order his meals. Patient was not impressed with the food he was given. Ordering his own meals will make a difference. Addendum entered by Estephania Healy R.N. 04/26/21 14:04: Remdesvir finished earlier, patient is low 90s on 4L of 02..He is sitting up in the chair and resting comfortably. IV flushing well.. Original Note: Patient with flat affect, does not want to be in the hospital. He has crackles throughout his lungs and is on 4L of 02. He tends to desat to about 87-89% when he gets up to use the bathroom. Up with sba to use the bathroom. Remdesvir is infusing now. Patient denies pain and is not eating his breakfast as he states that he is nauseous. Will recheck this in again to see if it has resolved.
--- NOTE | 2021-04-26 17:07 | PM.PN.1 ---
Subjective Subjective Date Patient Seen: 04/26/21 Interval history: 50-year-old male admitted to the hospital with COVID pneumonia. Patient's main complaint today is persistent headache in addition to ongoing cough. He continues on 4 and half to 5 L of oxygen. Overall he feels a little bit better Exam Vital Signs (past 8 hours): - 04/26/21 13:00 04/26/21 16:00 Temperature 99 F 98.3 F Pulse Rate 83 83 Respiratory Rate 18 18 Blood Pressure 132/82 138/82 Pulse Oximetry 90 L 92 Oxygen Delivery Method Nasal Cannula Oxygen Flow Rate 4.5 Narrative Exam Narrative: Ill-appearing male sitting in a chair Resp Other: Lungs: Decreased breath sounds with occasional scattered crackles and rhonchi Cardio Other: Cardiac exam: Regular rate and rhythm normal S1-S2 GI Other: Abdomen: Soft nontender nondistended Extrem Other: Extremities: No edema Objective Labs Result Diagrams: 04/26/21 04:43 04/26/21 04:43 Labs: Laboratory Results - last 24 hr 04/26/21 04/26/21 04:43 04:43 WBC 8.3 RBC 5.43 Hgb 15.9 Hct 45.1 MCV 83.0 MCH 29.4 MCHC 35.4 RDW 13.6 Plt Count 286 Neut % (Auto) 71.9 Lymph % (Auto) 17.7 L [place] % (Auto) 10.1 Eos % (Auto) 0.0 L Baso % (Auto) 0.3 Neut # (Auto) 6000 Lymph # (Auto) 1500 [place] # (Auto) 800 Eos # (Auto) 0 Baso # (Auto) 0 Sodium 139 Potassium 4.3 Chloride 101 Carbon Dioxide 33 H BUN 21 H Creatinine 0.90 Estimated GFR > 60.0 BUN/Creatinine Ratio 23.3 H Glucose 119 H Calcium 8.5 PFSH Medical History (Updated 04/24/21 @ 17:38 by Felipa Peres MD) Headache Hypertension Family History (Updated 04/24/21 @ 17:38 by Felipa Peres MD) Father Pneumonia due to COVID-19 virus Social History household members: spouse Smoking Status: Never smoker Assessment & Plan Assessment & Plan narrative: 50-year-old male admitted to the hospital with acute respiratory failure secondary to COVID pneumonia -patient is unvaccinated, SARs COVID 2 PCR is positive -chest x-ray confirms severe bilateral interstitial airspace opacities, there is multifocal consolidation, -patient is hypoxic with a room air sat of 85% -he continues to have fever, headache, and myalgias, poor appetite and metallic taste -white count 6.1, serum sodium 134 -will start dexamethasone 6 mg IV daily, remdesivir 200 mg IV x1 then 100 mg daily for 4 days -patient will be placed on Lovenox for DVT prophylaxis -will continue Tylenol and ibuprofen for headache -patient indicates he is a full code will note that his record according -in the event the patient would require intubation that resulted in tracheotomy he indicates he would not like a trach -patient will continue on remdesivir and Decadron, he is slightly more hypoxic today, will continue to titrate oxygen for maximum effect -patient complains of burning eyes, will start clear eyes for this patient with significant cough, will start cough suppressant - 2. Hypertension -new diagnosis, will continue amlodipine 5 mg daily, need to titrate for effect as blood pressure remains elevated -increase amlodipine to 10 mg daily -blood pressure improved No IV fluids, DVT put prophylaxis in place, anticipate discharge home with the patient no longer requires oxygen Time Spent With Patient Critical Care time: I spent a total of [] minutes of critical care time on this patient's care today; this time is exclusive of procedural time. Quality VTE Deep Vein Thrombosis/Pulmonary Embolism Present on Admission: No
[2021-04-27] VITALS (11 sets, daily range): BP systolic 117–155; BP diastolic 77–91; PULSE 67–89; RESP 17–24; TEMP 36.8–37.5; O2SAT 87–93
--- NOTE | 2021-04-27 01:29 | PC.NURSE ---
Addendum entered by Kaur Feng R.N. 04/27/21 06:38: Patient continues to vary from 88%-92% on 15L HFNC. Patient was educated on laying in the prone position multiple times but refuses. Patient was educated on heated highflow NC and moving to ICU if his Saturation does not improve and the patient stated that he didn't want us to go through all that work, he was assured it was not too much work and that it will help his O2 and patient stated he wanted to be reassessed at change of shift. Charge and provider CAROL Robbins were notified and oncoming RN will be notified at change of shift. Original Note: Patient was on 4L NC at 1900, patient was resting in bed, denied his 2100 medications, and denied SOB. This RN witnessed SOB while talking to the patient. At 2200 pt's O2 was reading 88-89%, this RN tried to move the pulse ox monitor and pt complained of the Pulse Ox monitor on his finger being too tight, this RN replaced it with the sticker probe and patient stated it was more comfortable. O2 was not improving so this RN increased O2 to 5L and called RT. RT assessed the patient and increased the O2 to humidified High Flow NC at 13L. O2 was reading 91% and RT notified this RN to monitor pt and decrease or notify as needed. Provider CAROL Robbins was notified. At 0050, ELECTRICAL INSTRUMENT REPAIRER called this RN stating that the patient was up to the toilet and O2 sat decreased to 84% while wearing the 13 HFNC and was not recovering after a few minutes. This RN assessed the patient and patient seemed more anxious and worried. This RN tried to help the patient relax and called RT. RT informed this RN to increase O2 to 15L HFNC. With adjustments, pts O2 was only getting to 86-88%. Provider CAROL Robbins was notified. After about 15 minutes O2 increased to 92% and patient is resting in bed. Will continue to monitor.
[2021-04-27 06:30] LABS: Add Manual Diff / Slide Review NO; Basophils Absolute Auto 0 /uL (0-100); Basophils Percent Auto 0.2 % (0-2); Eosinophils Absolute Auto 0 /uL (0-450); Hematocrit 44.7 % (41-53); Hemoglobin 15.6 g/dL (13.5-17.5); Lymphocytes Absolute Auto 1200 /uL (1100-4500); Lymphocytes Percent Auto 19.4 % (25-40); Mean Corpuscular HGB Conc 34.9 % (30-36); Mean Corpuscular Hemoglobin 29.2 PG (26-34); Mean Corpuscular Volume 83.7 fL (80-100); Monocytes Absolute Auto 900 /uL (0-900); Monocytes Percent Auto 14.4 % (3-14); Neutrophils Absolute Auto 4200 /uL (1500-7000); Platelet Count 319 X10^3/uL (150-400); Red Blood Cell Count 5.34 X10^6/uL (4.5-5.9); Red Cell Distribution Width 13.2 % (11.6-14.8); White Blood Cell Count 6.4 X10^3/uL (4.5-11.0)
[2021-04-27 06:37] LABS: BUN Creatinine Ratio 24.4 (6-22); Blood Urea Nitrogen 21 mg/dL (9-20); Calcium 8.6 mg/dL (8.4-10.2); Carbon Dioxide 33 mmol/L (22-32); Chloride 100 mmol/L (98-107); Estimated Glomerular Filt Rate > 60.0 mL/min (>60); Glucose 113 mg/dL (70-100); HEMOLYSIS < 15 (0-50); Potassium 4.2 mmol/L (3.4-5.1); Sodium 139 mmol/L (137-145)
[2021-04-27] MEDS: ENOXAPARIN 40 MG/0.4 ML SYRINGE SUBCUT (09:09)
[2021-04-27] MEDS: AMLODIPINE 5 MG TABLET 10 MG PO (09:10)
[2021-04-27] MEDS: DOCUSATE 100 MG CAPSULE PO (09:10)
[2021-04-27] MEDS: DEXAMETHASONE 10 MG/ML VIAL 6 MG IV (09:10)
[2021-04-27] MEDS: REMDESIVIR 100 MG in SODIUM CHLORIDE 0.9% 230 ML 250 ML IV (09:17)
--- NOTE | 2021-04-27 14:50 | CM.IDA ---
Discharge Planning/Care Management CM Discharge Assessment Start: 04/27/21 14:45 Freq: Status: Active Protocol: Document 04/27/21 14:45 AYLIN (Rec: 04/27/21 14:50 AYLIN [id number]) Discharge Planning Assessment Assigned Vegetable Farmworker JUN Webb DPOA/Assigned Designee Name Jose Luis Neff, father ( contact for spouse?? not listed) Contact Information [phone] Advance Directives? No History Provided By Patient Prior Living Arrangements House Household Members spouse Type of transporation used prior to Drives own vehicle admit Independent with ADL's Yes Is patient alert and oriented? Yes Barriers to Discharge No Comment Placed call into patient's room, patient soft spoken, states he will DC home when medically cleared. Patient states he is doing everyting that staff has asked him to do . Asked patient if he is interested in getting vaccinated. Patient states there is no vaccine right? Patient does not sound to be kidding. Patient denies needs from this AROMATHERAPIST. Indp at baseline, states he eat today for the first time in days, that I feel so much better now, I think I can go home. RT has patient on 15L still Discharge Plan Home Transportation Arrangement Family Referrals Initiated None needed
--- NOTE | 2021-04-27 16:05 | PC.NURSE ---
Pt became very agitated w/staff & situation. Insisting on leaving AMA. Continues @ 15L HF O2 SpO2 90-92% with activity desats to 88-89% Appears SOB w/ and w/o excretion. Dr. Marin aware, AMA form completed, HL discontinued intact Pt escorted to front door by staff & security. Pt called dad stating You gotta come get me, their kicking me out right now. Pt left AMA
--- NOTE | 2021-04-27 16:33 | P.PN_ITS ---
Subjective Subjective Interval history: Patient reports that his breathing is slightly improved today. He believes he acquired COVID from his children and partner at home, the former likely bringing it home from day care. He denies CP, palpitations, n/v. Exam Vital Signs (past 8 hours): - 04/27/21 09:00 04/27/21 10:30 04/27/21 12:00 Temperature 98.4 F 99.5 F Pulse Rate 89 Respiratory Rate 24 18 Blood Pressure 138/77 130/84 Pulse Oximetry 87 L 91 91 04/27/21 14:41 04/27/21 15:25 Temperature 98.5 F Pulse Rate 67 Respiratory Rate 18 Blood Pressure 153/88 H Pulse Oximetry 90 L 93 Oxygen Delivery Method High Flow Nasal Cannula Oxygen Flow Rate 15 Const Other: Patient is laying in bed comfortably upon my entering the room, in no apparent acute distress. Eyes Other: No scleral icterus appreciated. Neck Other: No carotid bruits appreciated. Resp Other: Bibasilar coarse breath sounds appreciated. Cardio Other: Regular rate and rhythm. S1 and S2 heart sounds appreciated, with no extra heart sounds or murmurs noted. GI Other: Soft, non-distended, non-tender. Bowel sounds present. Extrem Other: Palpable and equal radial and dorsalis pedis pulses bilaterally. Objective Labs Result Diagrams: 04/27/21 06:00 04/27/21 06:00 Labs: Laboratory Results - last 24 hr 04/27/21 04/27/21 06:00 06:00 WBC 6.4 RBC 5.34 Hgb 15.6 Hct 44.7 MCV 83.7 MCH 29.2 MCHC 34.9 RDW 13.2 Plt Count 319 Neut % (Auto) 66.0 Lymph % (Auto) 19.4 L [place] % (Auto) 14.4 H Eos % (Auto) 0.0 L Baso % (Auto) 0.2 Neut # (Auto) 4200 Lymph # (Auto) 1200 [place] # (Auto) 900 Eos # (Auto) 0 Baso # (Auto) 0 Sodium 139 Potassium 4.2 Chloride 100 Carbon Dioxide 33 H BUN 21 H Creatinine 0.86 Estimated GFR > 60.0 BUN/Creatinine Ratio 24.4 H Glucose 113 H Calcium 8.6 PFSH Medical History (Updated 04/24/21 @ 17:38 by Felipa Peres MD) Headache Hypertension Family History (Updated 04/24/21 @ 17:38 by Felipa Peres MD) Father Pneumonia due to COVID-19 virus Social History household members: spouse Smoking Status: Never smoker Assessment & Plan Assessment & Plan narrative: 50-year-old male admitted to the hospital with acute respiratory failure secondary to COVID pneumonia -patient is unvaccinated, SARs COVID 2 PCR is positive -chest x-ray confirms severe bilateral interstitial airspace opacities, there is multifocal consolidation -patient is hypoxic with a room air sat of 85% -he continues to have fever, headache, and myalgias, poor appetite and metallic taste -on dexamethasone 6 mg IV daily, remdesivir 200 mg IV x1 then 100 mg daily for 4 days -patient will be placed on Lovenox for DVT prophylaxis -will continue Tylenol and ibuprofen for headache -patient indicates he is a full code will note that his record according -in the event the patient would require intubation that resulted in tracheotomy he indicates he would not like a trach -patient will continue on remdesivir and Decadron, he is slightly more hypoxic today, will continue to titrate oxygen? 2. Hypertension -new diagnosis, will continue amlodipine 5 mg daily, need to titrate for effect as blood pressure remains elevated -increase amlodipine to 10 mg daily No IV fluids, DVT put prophylaxis in place, anticipate discharge home with the patient no longer requires oxygen Time Spent With Patient Critical Care time: I spent a total of [] minutes of critical care time on this patient's care today; this time is exclusive of procedural time. Quality VTE Deep Vein Thrombosis/Pulmonary Embolism Present on Admission: No
--- NOTE | 2021-04-27 16:41 | P.DS_ITS ---
History of Present Illness History of Present Illness Chief complaint: Heavy metal poisioning Discharge Providers Provider Date of admission: 04/24/21 15:01 Discharge Date: 04/27/21 Discharge provider: Kathy Marin MD Summary Hospital Course Discharge Diagnosis: 50-year-old male admitted to the hospital with acute respiratory failure secondary to COVID pneumonia. Patient required up to 15 liters of supplemental oxygen on 04/27/2021. Unfortunately, he requested to leave against medical advice at this time, despite multiple staff encouraging patient to stay, since his COVID-19 pneumonia is severe. However, patient ultimately decided to leave against medical advice on 04/27/2021. Problem list while he was inpatient include: 1. Acute hypoxic respiratory failure secondary to severe COVID-19 pneumonia -patient is unvaccinated, SARs COVID 2 PCR is positive -chest x-ray confirms severe bilateral interstitial airspace opacities, there is multifocal consolidation -patient is hypoxic with a room air sat of 85% -dexamethasone 6 mg IV daily, remdesivir 200 mg IV x1 then 100 mg daily for 4 days -Tylenol and ibuprofen for headache -patient indicates he is a full code? -in the event the patient would require intubation that resulted in tracheotomy he indicates he would not like a trach -on remdesivir and Decadron, will continue to titrate oxygen? 2. Hypertension -new diagnosis, will continue amlodipine 5 mg daily, need to titrate for effect as blood pressure remains elevated -increase amlodipine to 10 mg daily Hospital Course: 50-year-old male admitted to the hospital with acute respiratory failure secondary to COVID pneumonia. Patient required up to 15 liters of supplemental oxygen on 04/27/2021. Unfortunately, he requested to leave against medical advice at this time, despite multiple staff encouraging patient to stay, since his COVID-19 pneumonia is severe. However, patient ultimately decided to leave against medical advice on 04/27/2021. Exam Vital Signs (past 8 hours): - 04/27/21 09:00 04/27/21 10:30 04/27/21 12:00 Temperature 98.4 F 99.5 F Pulse Rate 89 Respiratory Rate 24 18 Blood Pressure 138/77 130/84 Pulse Oximetry 87 L 91 91 04/27/21 14:41 04/27/21 15:25 Temperature 98.5 F Pulse Rate 67 Respiratory Rate 18 Blood Pressure 153/88 H Pulse Oximetry 90 L 93 Oxygen Delivery Method High Flow Nasal Cannula Oxygen Flow Rate 15 Narrative Exam Narrative: Const Other: Patient is laying in bed comfortably upon my entering the room, in no apparent acute distress. Eyes Other: No scleral icterus appreciated. Neck Other: No carotid bruits appreciated. Resp Other: Bibasilar coarse breath sounds appreciated. Cardio Other: Regular rate and rhythm. S1 and S2 heart sounds appreciated, with no extra heart sounds or murmurs noted. GI Other: Soft, non-distended, non-tender. Bowel sounds present. Extrem Other: Palpable and equal radial and dorsalis pedis pulses bilaterally. Objective Labs Result Diagrams: 04/27/21 06:00 04/27/21 06:00 Labs: Laboratory Results - last 24 hr 04/27/21 04/27/21 06:00 06:00 WBC 6.4 RBC 5.34 Hgb 15.6 Hct 44.7 MCV 83.7 MCH 29.2 MCHC 34.9 RDW 13.2 Plt Count 319 Neut % (Auto) 66.0 Lymph % (Auto) 19.4 L [place] % (Auto) 14.4 H Eos % (Auto) 0.0 L Baso % (Auto) 0.2 Neut # (Auto) 4200 Lymph # (Auto) 1200 [place] # (Auto) 900 Eos # (Auto) 0 Baso # (Auto) 0 Sodium 139 Potassium 4.2 Chloride 100 Carbon Dioxide 33 H BUN 21 H Creatinine 0.86 Estimated GFR > 60.0 BUN/Creatinine Ratio 24.4 H Glucose 113 H Calcium 8.6 PFSH Medical History (Updated 04/24/21 @ 17:38 by Felipa Peres MD) Headache Hypertension Family History (Updated 04/24/21 @ 17:38 by Felipa Peres MD) Father Pneumonia due to COVID-19 virus Social History household members: spouse Smoking Status: Never smoker Discharge Assessment & Plan Assessment and Plan Assessment: 50-year-old male admitted to the hospital with acute respiratory failure secondary to COVID pneumonia. Patient required up to 15 liters of supplemental oxygen on 04/27/2021. Unfortunately, he requested to leave against medical advice at this time, despite multiple staff encouraging patient to stay, since his COVID-19 pneumonia is severe. However, patient ultimately decided to leave against medical advice on 04/27/2021. Problem list while he was inpatient include: 1. Acute hypoxic respiratory failure secondary to severe COVID-19 pneumonia -patient is unvaccinated, SARs COVID 2 PCR is positive -chest x-ray confirms severe bilateral interstitial airspace opacities, there is multifocal consolidation -patient is hypoxic with a room air sat of 85% -dexamethasone 6 mg IV daily, remdesivir 200 mg IV x1 then 100 mg daily for 4 days -Tylenol and ibuprofen for headache -patient indicates he is a full code? -in the event the patient would require intubation that resulted in tracheotomy he indicates he would not like a trach -on remdesivir and Decadron, will continue to titrate oxygen? 2. Hypertension -new diagnosis, will continue amlodipine 5 mg daily, need to titrate for effect as blood pressure remains elevated -increase amlodipine to 10 mg daily Discharge Plan Discharge orders & Medications Discharge Orders: Discharge (Order); Ordered 04/27/21 Ordered By: Kathy Marin Prescriptions: No Action No Known Home Medications 0RF Quality VTE Deep Vein Thrombosis/Pulmonary Embolism Present on Admission: No
== END 2021-04-27 16:10 | disposition left against medical advice (07) | DRG 137 ==
LOC: ED 14:24 → AC 15:01
PROVIDERS: Admitting Provider Internal Medicine; Emergency Provider Emergency Medicine; Referring Provider Emergency Medicine; Visit Provider Internal Medicine
DX: U07.1 COVID-19 (principal); J12.82 Pneumonia due to coronavirus disease 2019; J96.01 Acute respiratory failure with hypoxia; I10 Essential (primary) hypertension; Z53.29 Procedure and treatment not carried out because of patient's decision for other reasons
CPT/HCPCS: 36415; 71046; 80048; 80053; 82550; 82553; 83605; 83880; 84145; 84484; 85025; 87635; 93005; 94762; 96374; 96375; 99284; C9803; J1100; J1650; J1885; J2405